=== PATIENT | male | born 1955 | race Caucasian/White ===

== ENCOUNTER 2021-02-02 16:30 | Emergency (ER) | payer BC, OTHER ==
[~2021-02-02] VITALS: Ht 167.6 cm; Wt 72.6 kg
[2021-02-02 17:25] LABS: HEMATOCRIT 39.7 % (42.0-52.0); HEMOGLOBIN 13.2 gm/dL (14.0-18.0); MCH 29.4 pg (26.0-34.0); MCHC 33.3 g/dL (28.0-37.0); MCV 88.1 fL (80.0-100.0); RBC 4.5 mil/uL (4.50-6.00); RDW 13.8 % (10.5-14.5); WBC 9.6 thou/uL (4.0-11.0)
[2021-02-02 17:34] LABS: CALCIUM 8.4 mg/dL (8.5-10.1); CREATININE 0.9 mg/dL (0.7-1.3); POTASSIUM 3.8 mmol/L (3.5-5.1)
[2021-02-02 17:37] LABS: ALBUMIN 3.6 g/dL (3.4-5.0); TOTAL BILIRUBIN 0.6 mg/dL (0.2-1.0); TOTAL PROTEIN 6.9 g/dL (6.4-8.2)
[2021-02-02] MEDS ORDERED: CYCLOBENZAPRINE5 MG PO (19:18)
[2021-02-02] MEDS ORDERED: IBUPROFEN 800800 M1 PO (19:18)
[2021-02-02 19:47] VITALS: BP 128/66
--- NOTE | 2021-02-04 07:23 | EKG ---
[address] [address] ELECTROCARDIOGRAM REPORT Name: MORENA FISCHER Room #: DEP [facility]#: [id number] Admission: 02/02/21 Attend Phys: Discharge: 02/02/21 Date of : 51 Report #: [id number] [facility] Test Date: 2021-02-02 Test Time: 17:02:31 Pat Name: MORENA HERNDONMALACHIepartment: Room: Gender: M [employer]: CHAN : 1955 Requested By: Bhavana Roque Order Number: [id number] MD: Alejandro Fitzpatrick Measurements Intervals [place] Rate: 92 P: 73 NE: 153 QRS: 75 QRSD: 90 T: 65 QT: 367 QTc: 455 Interpretive Statements Sinus rhythm No previous ECG available for comparison Electronically Signed On 02-04-2021 7:23:24 CDT by Alejandro Fitzpatrick [email or web address] <ELECTRONICALLY SIGNED> By: Alejandro Fitzpatrick MD, [facility] 02/04/21 0723 170 01 Alejandro Fitzpatrick MD, FACC /EPI
== END 2021-02-02 19:49 | disposition home or self-care (01) ==
LOC: ER 16:30
PROVIDERS: Physician Assistant
DX: M54.9 Dorsalgia, unspecified (principal); R07.89 Other chest pain; M54.2 Cervicalgia; V49.9XXA Car occupant (driver) (passenger) injured in unspecified traffic accident, initial encounter; Y93.89 Activity, other specified; Y92.89 Other specified places as the place of occurrence of the external cause; Y99.8 Other external cause status